=== PATIENT | male | born 1990 | race Caucasian/White ===

== ENCOUNTER 2020-03-05 12:21 | Emergency (ER) | payer OTHER, SELFPAY ==
--- NOTE | ~2020-03-05 | XR_ITS ---
EXAMINATION: XR chest 2V 03/05/2020 14:21 INDICATION: Left-sided abdomen pain PROCEDURE: 2 view chest COMPARISON: 06/05/2008 FINDINGS: The lungs are clear. The cardiomediastinal silhouette is within normal limits. There are no pleural effusions. There is no pneumothorax suspected. IMPRESSION: 1: NO ACUTE CARDIOPULMONARY DISEASE. Reviewed, dictated and finalized at location A.
--- NOTE | ~2020-03-05 | CT_ITS ---
EXAMINATION: CT abdomen pelvis w con DATE: 03/05/2020 14:19 INDICATION: Left-sided abdomen pain. TECHNIQUE: Computed tomography (CT) of the abdomen and pelvis was performed with 100 cc Omnipaque 350 intravenous contrast. The dose-length product was 266.40 mGy-cm. Automated exposure control and iter ative reconstruction technique were employed. COMPARISON: No prior studies for comparison. FINDINGS: Lung bases are unremarkable. Heart size normal. No significant vascular abnormality. No lym phadenopathy. Normal appendix. Nonobstructive bowel gas pattern. There is focal thickening of the pro ximal descending colon near the splenic flexure with adjacent fluid extending into the paracolic gutt er, most likely acute diverticulitis versus epiploic appendagitis. No free air or abscess. The liver, spleen, pancreas, adrenal glands and kidneys are unremarkable. No significant vascular abn ormality. No lymphadenopathy. No acute osseous abnormality. Gallbladder is present. IMPRESSION: 1. Focal thickening of the proximal descending colon near the splenic flexure with adjacent fluid ext ending into the paracolic gutter. Findings most consistent with acute diverticulitis versus epiploic appendagitis. Reviewed, dictated and finalized at location A. IMPRESSION: 1. Focal thickening of the proximal descending colon near the splenic flexure w ith adjacent fluid extending into the paracolic gutter. Findings most consisten t with acute diverticulitis versus epiploic appendagitis.
[2020-03-05 12:42] VITALS: BP 138/76; PULSE 93; RESP 18; TEMP 37.2; O2SAT 99
--- NOTE | 2020-03-05 12:43 | ED.ABDPAIN ---
HPI - Abdominal Pain General Chief Complaint: Abdominal Pain Stated Complaint: Left side abdomen pain Time Seen by Provider: 03/05/20 12:43 Source: patient Mode of arrival: ambulatory Limitations: no limitations History of Present Illness HPI narrative: 29-year-old man comes in today complaining of 3 days of left-sided abdominal pain that is getting worse. Patient states he has had some nausea but no vomiting. He denies fever, diarrhea, dysuria, hematuria and radiating pain. States he has never had pain like this before. States he was treated for kidney stones when he was in the service. He has had no prior abdominal surgery. MD elicited complaint: abdominal pain Onset (ago): day(s) (3) Pain Consistency: constant Location: LUQ, LLQ and L flank Severity: moderate Quality: sharp Radiation: none Migration to: no migration Exacerbating factors: movement Relieving factors: nothing Associated symptoms: nausea Related Data Home Medications Medication Instructions Recorded Confirmed Unable to Obtain Home Medications 03/05/20 03/05/20 Allergies Allergy/AdvReac Type Severity Reaction Status Date / Time No Known Allergies Allergy Mild Verified 05/14/10 03:13 Review of Systems Constitutional: Constitutional: Denies chills and Denies fever(s) Eyes: Eyes: Denies change in vision and Denies photophobia ENT: Denies dysphagia, Denies nasal congestion and Denies sore throat Cardiovascular: Cardiovascular: Denies chest pain and Denies radiating jaw, neck or arm pain Respiratory: Respiratory: Denies cough, Denies dyspnea and Denies wheezing Gastrointestinal: Gastrointestinal: Reports as per HPI, Reports abdominal pain, Denies constipation, Denies diarrhea, Reports nausea and Denies vomiting Genitourinary: Genitourinary: Denies hematuria, Denies dysuria and Reports urinary frequency Musculoskeletal: Musculoskeletal: Reports arthralgias and Reports joint swelling Integumentary/Breasts: Skin/Breast: Denies pruritus, Denies erythema and Denies rash Neurologic: Denies vertigo, Denies dizziness and Denies syncope Hematologic/Lymphatic: Hematologic/Lymphatic: Denies easy bleeding and Denies easy bruising Allergic/Immunologic: Allergic/Immunologic: Denies throat swelling and Denies tongue swelling PMFSH Past Medical History Medical History (Updated 03/05/20 @ 15:07 by Elio Fried MD) GERD (gastroesophageal reflux disease) Peptic ulcer disease Urolithiasis Social History Social History Smoking status: Never smoker Substance use: never Living arrangements: with family Exam Const: General: healthy appearing and alert Orientation/consciousness: patient oriented x3 Limitations: no limitations Other: [id number] acute distress. HENMT: Head: normal to inspection Ears: external ears normal, TM's normal bilaterally and EAC's normal Face and sinus: normal facial exam Mouth: Yes moist mucous membranes Throat: posterior oropharynx normal Eyes: Conjunctivae: conjunctivae normal Pupils: Equal, round and reactive pupils present EOM: EOMs intact bilaterally Resp: Effort & Inspection: normal respiratory effort and not labored Auscultation: clear to auscultation bilaterally, no rales, no rhonchi and no wheezes Cardio: Rate: regular rate Rhythm: regular rhythm Heart sounds: no murmurs GI: Inspection: non-distended GI Palp: Yes Soft to palpation and Yes Tenderness to palpation present (GI) ( Left flank and left lower quadrant) Other: no guarding. Skin: General skin exam: normal color, no jaundice and no pallor Rashes: no rashes Neuro: General: patient oriented x3, moves all extremities, no focal motor deficits and CN's II-XI intact bilaterally Cranial nerves: Yes Nystagmus not present Speech: normal speech Extrem: General: normal to inspection and no clubbing, cyanosis or edema Psych: Appearance: grossly normal and well kempt Mental Sta
[2020-03-05] MEDS: ONDANSETRON INJ 4 MG/2 ML VIAL IV PUSH (13:01)
[2020-03-05] MEDS: MORPHINE SULFATE 4 MG/ML INJ IV PUSH (13:01)
[2020-03-05] MEDS: SODIUM CHLORIDE 0.9% IV 1,000 ML 999 ML IV CONT (13:01)
[2020-03-05] MEDS: KETOROLAC 30 MG/ML VIAL (*BKC) IV PUSH (13:01)
[2020-03-05] MEDS: PANTOPRAZOLE SODIUM IV 40 MG VIAL IV PUSH (13:01)
[2020-03-05 13:08] LABS: Basophils Absolute Auto 0.03 K/mm3 (0.00-0.10); Basophils Percent Auto 0.4 % (0.0-1.0); Eosinophils Absolute Auto 0.22 K/mm3 (0.02-0.50); Eosinophils Percent Auto 2.7 % (1.0-6.0); Hematocrit 44.9 % (40.0-54.0); Hemoglobin 15.3 g/dL (14.0-18.0); Immature Granulocyte Absolute 0.03 K/mm3 (0.00-0.00); Immature Granulocyte Percent A 0.4 % (0.0-0.0); Lymphocytes Absolute Auto 2.12 K/mm3 (1.10-4.50); Lymphocytes Percent Auto 26.2 % (18.0-42.0); Mean Corpuscular HGB Conc 34.1 g/dL (32.0-36.0); Mean Corpuscular Hemoglobin 30.2 pg (27.0-31.0); Mean Corpuscular Volume 88.6 fL (78.0-102.0); Monocytes Absolute Auto 0.45 K/mm3 (0.10-0.90); Monocytes Percent Auto 5.6 % (2.0-11.0); Neutrophils Absolute Auto 5.2 K/mm3 (1.7-7.2); Neutrophils Percent Auto 64.7 % (50.0-70.0); Platelet Count Result 241 K/mm3 (150-420); Red Blood Count 5.07 M/mm3 (4.70-6.10); Red Cell Distribution Width 13.1 % (11.6-14.4); White Blood Count 8.1 K/mm3 (4.8-10.8)
[2020-03-05 13:09] LABS: Bilirubin Urine Negative (Negative); Blood Urine Negative (Negative); Color Urine Yellow (Yellow); Glucose Urine UA Negative (Negative); Ketones Urine Negative (Negative); Leukocyte Esterase Ur Negative LEU/UL (Negative); Nitrate Urine Negative (Negative); Protein Urine Negative (Negative); Specific Grav Ur 1.015 (1.010-1.020); pH Urine 7.5 (5.0-8.0)
[2020-03-05 13:14] LABS: Add Urine Microscopic? YES; Appearance Urine Cloudy (Clear); RBC Urine 0-2 /hpf (0-2); Squamous Epithelial Cell Urine None seen /hpf (Few); WBC Urine 0-3 /hpf (0-3)
[2020-03-05 13:15] LABS: Amorphous Sediment Urine Heavy; Bacteria Urine None seen /hpf
[2020-03-05 13:22] LABS: INR 1.1; Partial Thromboplastin Time 27.2 SEC (22.3-31.6); Prothrombin Time 10.9 Seconds (9.64-11.0)
[2020-03-05 13:23] LABS: Alanine Aminotransferase 30 U/L (16-63); Albumin Level 3.9 g/dL (3.4-5.0); Alkaline Phosphatase 69 U/L (46-116); Anion Gap 7 mmol/L (8-16); Aspartate Amino Transferase 10 U/L (15-37); Bilirubin,Total 0.3 mg/dL (0.00-1.00); Blood Urea Nitrogen 12 mg/dL (7-18); Calcium 8.7 mg/dL (8.5-10.1); Carbon Dioxide 29 mmol/L (21-32); Chloride 104 mmol/L (98-108); Estimated CRCL calculation 76 ml/min; Estimated Glomerular Filt Rate > 60; Glucose 128 mg/dL (70-99); Lipase 58 U/L (73-393); Osmolality Calculated 291 mOsm/kg (285-295); Sodium 140 mmol/L (136-145); Total Protein 7.4 g/dL (6.4-8.2)
[2020-03-05 13:26] LABS: Lactic Acid Reflex 0.9 mmol/L (0.4-2.0)
[2020-03-05 14:27] VITALS: BP 112/68; PULSE 72; RESP 16; O2SAT 98
--- NOTE | 2020-03-05 14:42 | PC.NURSE ---
[facility] head housekeeper contacted for surgical consult.
--- NOTE | 2020-03-05 15:00 | PC.NURSE ---
dr horne speaking with dr washburn at [place].
--- NOTE | 2020-03-09 13:34 | PC.NURSE ---
LATE ENTRY This note is being entered to document information to the patient's record. The following information was omitted on [03/05/20], by [KENN BLUNT]. NS 1000ML INFUSED AT 1402.
== END 2020-03-05 15:24 | disposition home or self-care (01) ==
PROVIDERS: Emergency Provider Emergency Medicine; PCP Family Medicine
DX: K63.89 Other specified diseases of intestine (principal)
CPT/HCPCS: 36415; 71046; 74177; 80053; 81001; 83605; 83690; 85025; 85610; 85730; 96361; 96374; 96375; 99282; 99284; C9113; J1885; J2270; J2405; J7030; Q9965

== ENCOUNTER 2020-07-24 10:13 | Emergency (ER) | payer OTHER, SELFPAY ==
--- NOTE | ~2020-07-24 | CT_ITS ---
EXAMINATION: CT abdomen pelvis w con DATE: 07/24/2020 13:00 INDICATION: Left lower quadrant abdominal pain. Nausea and vomiting. TECHNIQUE: Computed tomography (CT) of the abdomen and pelvis was performed with 100 mL Omnipaque 350 intravenous contrast. Automated exposure control and iterative reconstruction technique were employe d. The dose-length product was 267.59 mGy-cm. COMPARISON: CT abdomen and pelvis 03/05/2020 FINDINGS: The visualized portions of the lung bases are clear without pneumonia or pleural effusion. The heart size is normal. No pericardial effusion. The liver, gallbladder, spleen, pancreas, and adre nal glands are normal. There is mild atrophy of right kidney. There is a 10 mm cyst in left kidney. T here are no dilated loops of bowel. The appendix is normal. There are no pathologically enlarged lymp h nodes. There is no free intraperitoneal fluid. There is mild lumbar spondylosis. IMPRESSION: 1. No etiology for the patient's symptoms. Reviewed, dictated and finalized at location A. UREMENT REPRESENTATIVE
[2020-07-24 10:15] VITALS: BP 129/88; PULSE 84; RESP 16; TEMP 36.6; O2SAT 99
--- NOTE | 2020-07-24 10:25 | ED.GIBLEED ---
HPI - GI Bleed General Source: patient Mode of arrival: ambulatory Limitations: no limitations History of Present Illness HPI Narrative: A 30-year-old man with a history of peptic ulcer disease and kidney stones comes in today complaining of left side pain which has been present for last 8 days. Patient states that he has also had vomiting. After the 1st episodes of vomiting, he began to vomit up small amounts of blood and coffee-ground material. He states that he has vomited in the last 2 days but has vomited no blood or coffee-ground material. He states he has been lightheaded, had a mild headache, and nauseated. He denies any black or bloody stools and has Had no fever, sore throat, cough or cold symptoms, diarrhea, dysuria or hematuria, denies marijuana use. Patient is scheduled for EGD and colonoscopy at [facility] toward the end of this month. MD complaint: blood streaked emesis and coffee ground emesis Onset (ago): day(s) (8) Pain Consistency: intermittent Severity: moderate Relieving factors: none Exacerbating factors: eating and vomiting Context: history of GI bleed Associated symptoms: abdominal pain, nausea, vomiting and headaches Treatments Prior to Arrival: none Related Data Allergies Allergy/AdvReac Type Severity Reaction Status Date / Time No Known Allergies Allergy Mild Verified 05/14/10 03:13 Review of Systems Constitutional: Constitutional: Denies chills and Denies fever(s) Eyes: Eyes: Denies change in vision and Denies photophobia ENT: Denies nasal congestion and Denies sore throat Cardiovascular: Cardiovascular: Denies chest pain and Denies radiating jaw, neck or arm pain Respiratory: Respiratory: Denies cough and Denies dyspnea Gastrointestinal: Gastrointestinal: Reports as per HPI, Reports abdominal pain, Denies diarrhea, Reports nausea and Reports vomiting Genitourinary: Genitourinary: Denies hematuria and Denies dysuria Musculoskeletal: Musculoskeletal: Denies arthralgias and Denies joint swelling Integumentary/Breasts: Skin/Breast: Denies pruritus, Denies erythema and Denies rash Neurologic: Denies vertigo, Reports dizziness and Denies syncope Endocrine: Endocrine: Denies polydipsia and Denies polyuria Hematologic/Lymphatic: Hematologic/Lymphatic: Denies easy bleeding and Denies easy bruising Allergic/Immunologic: Allergic/Immunologic: Denies lip swelling and Denies throat swelling [facility] Past Medical History Medical History GERD (gastroesophageal reflux disease) Peptic ulcer disease Urolithiasis Social History Social History Smoking status: Current every day smoker Alcohol intake: current Alcohol use details: occasional Substance use: never Exam Const: General: alert and ill appearing acutely Orientation/consciousness: patient oriented x3 HENMT: Head: normal to inspection Ears: external ears normal, TM's normal bilaterally and EAC's normal General nose exam: Normal nares present Face and sinus: normal facial exam Mouth: Yes moist mucous membranes Throat: posterior oropharynx normal Eyes: Conjunctivae: conjunctivae normal Pupils: Equal, round and reactive pupils present EOM: EOMs intact bilaterally Resp: Effort & Inspection: normal respiratory effort and not labored Auscultation: clear to auscultation bilaterally, no rales, no rhonchi and no wheezes Cardio: Rate: regular rate Rhythm: regular rhythm Heart sounds: no murmurs GI: GI Palp: Yes Soft to palpation and Yes Tenderness to palpation present (GI) (mild, left periumbilical. NO rebound or masses. No CVA tenderness) Auscultation: normal bowel sounds Skin: General skin exam: normal color, no jaundice and no pallor Rashes: no rashes Neuro: General: patient oriented x3, moves all extremities, no focal motor deficits and CN's II-XI intact bilaterally Speech: normal speech Gait exam (Neuro): Norm
[2020-07-24 10:55] LABS: Basophils Absolute Auto 0.03 K/mm3 (0.00-0.10); Basophils Percent Auto 0.4 % (0.0-1.0); Eosinophils Absolute Auto 0.34 K/mm3 (0.02-0.50); Eosinophils Percent Auto 4.7 % (1.0-6.0); Hematocrit 44.2 % (40.0-54.0); Hemoglobin 14.9 g/dL (14.0-18.0); Immature Granulocyte Absolute 0.03 K/mm3 (0.00-0.00); Immature Granulocyte Percent A 0.4 % (0.0-0.0); Lymphocytes Absolute Auto 3.41 K/mm3 (1.10-4.50); Mean Corpuscular HGB Conc 33.7 g/dL (32.0-36.0); Mean Corpuscular Hemoglobin 29.4 pg (27.0-31.0); Mean Corpuscular Volume 87.4 fL (78.0-102.0); Mean Platelet Volume 10.9 fl (8.7-11.0); Monocytes Absolute Auto 0.45 K/mm3 (0.10-0.90); Monocytes Percent Auto 6.2 % (2.0-11.0); Neutrophils Percent Auto 41.3 % (50.0-70.0); Platelet Count Result 216 K/mm3 (150-420); Red Blood Count 5.06 M/mm3 (4.70-6.10); Red Cell Distribution Width 12.9 % (11.6-14.4); White Blood Count 7.3 K/mm3 (4.8-10.8)
[2020-07-24] MEDS: ONDANSETRON INJ 4 MG/2 ML VIAL IV PUSH (10:55)
[2020-07-24] MEDS: SODIUM CHLORIDE 0.9% IV 1,000 ML 999 ML IV CONT (10:55)
[2020-07-24] MEDS: PANTOPRAZOLE SODIUM IV 40 MG VIAL IV PUSH (10:55)
[2020-07-24 11:06] VITALS: BP 117/73; PULSE 78
[2020-07-24] MEDS: MORPHINE SULFATE (*CRX) 4 MG/ML INJ IV PUSH (11:06)
--- NOTE | 2020-07-24 11:07 | PC.NURSE ---
PT HAVING LOCALIZED REDNESS TO RIGHT HAND AT IV SITE THAT MOVES SLIGHTLY UP RIGHT FOREARM. ERP NOTIFIED. RN MONITORING SITE CLOSELY.
[2020-07-24 11:08] VITALS: BP 110/81; PULSE 86
[2020-07-24 11:10] LABS: Partial Thromboplastin Time 24.6 SEC (23.90-30.70); Prothrombin Time 10.3 Seconds (9.50-12.10)
[2020-07-24 11:11] LABS: Acetaminophen < 2 ug/mL (10-30)
[2020-07-24 11:12] LABS: Alanine Aminotransferase 32 U/L (16-63); Albumin Level 3.9 g/dL (3.4-5.0); Alkaline Phosphatase 54 U/L (46-116); Anion Gap 10 mmol/L (8-16); Aspartate Amino Transferase 11 U/L (15-37); Bilirubin,Total 0.2 mg/dL (0.00-1.00); Blood Urea Nitrogen 13 mg/dL (7-18); Carbon Dioxide 26 mmol/L (21-32); Chloride 104 mmol/L (98-108); Estimated CRCL calculation 101 ml/min; Estimated Glomerular Filt Rate > 60; Glucose 96 mg/dL (70-99); Lipase 83 U/L (73-393); Osmolality Calculated 290 mOsm/kg (285-295); Potassium 4.2 mmol/L (3.5-5.1); Sodium 140 mmol/L (136-145); Total Protein 7.2 g/dL (6.4-8.2)
[2020-07-24 11:13] LABS: Lactic Acid Reflex 0.9 mmol/L (0.4-2.0)
[2020-07-24] MEDS: SODIUM CHLORIDE 0.9% IV 1,000 ML 999 ML (12:14)
[2020-07-24 12:17] LABS: Add Urine Microscopic? NO; Appearance Urine Clear (Clear); Bilirubin Urine Negative (Negative); Blood Urine Negative (Negative); Color Urine Yellow (Yellow); Glucose Urine UA Negative (Negative); Ketones Urine Negative (Negative); Leukocyte Esterase Ur Negative LEU/UL (Negative); Nitrate Urine Negative (Negative); Protein Urine Negative (Negative); Specific Grav Ur >= 1.030 (1.010-1.020); Urobilinogen Urine 0.2 mg/dL (0.2-1.0)
[2020-07-24 12:27] LABS: Amphetamine Screen Urine Positive (Negative); Barbiturate Screen Urine Negative (Negative); Benzodiazepines Screen Urine Negative (Negative); Cannabinoid Screen Urine Negative (Negative); Cocaine Screen Urine Negative (Negative); Methadone Screen Urine Negative (Negative); Opiate Screen Urine Positive (Negative); Phencyclidine Screen Urine Negative (Negative)
--- NOTE | 2020-07-24 12:48 | PC.NURSE ---
REPORT PROVIDED TO MERLENE BARTON
--- NOTE | 2020-07-24 13:09 | PC.NURSE ---
pt resting per cot on cell phone.
[2020-07-24 13:15] VITALS: BP 116/75; PULSE 77; RESP 20; TEMP 37.1; O2SAT 100
== END 2020-07-24 13:18 | disposition home or self-care (01) ==
PROVIDERS: Emergency Provider Emergency Medicine
DX: R10.32 Left lower quadrant pain (principal); K92.0 Hematemesis
CPT/HCPCS: 36415; 74177; 80053; 80307; 81003; 83605; 83690; 85025; 85610; 85730; 96361; 96374; 96375; 99283; 99284; C9113; J2270; J2405; J7030; Q9967

== ENCOUNTER 2020-08-20 00:45 | Emergency (ER) | payer OTHER, SELFPAY ==
--- NOTE | 2020-08-20 00:54 | ED.URI ---
HPI - URI/Sore Throat General Chief Complaint: Upper Respiratory Infection Stated Complaint: Sore Throat Time Seen by Provider: 08/20/20 01:04 Source: patient Mode of arrival: ambulatory Limitations: no limitations History of Present Illness HPI Narrative: 30-year-old man comes in today complaining of sore throat that has been present for the last 4 days. Patient states it started after he had endoscopy last week. He has noticed that there are white patches in the back of his throat and that is red and somewhat swollen. He denies difficulty swallowing, difficulty breathing, fever, vomiting, diarrhea, cough or cold symptoms, and rash. He denies any sick contacts. MD elicited complaint: sore throat Onset (ago): day(s) (4) Consistency: constant Severity: moderate Able to tolerate fluids by mouth: Yes Exacerbating factors: swallowing Relieving factors: nothing Associated symptoms: sore throat Related Data Home Medications Medication Instructions Recorded Confirmed docusate sodium 100 mg PO DAILY 08/20/20 08/20/20 linaclotide [Linzess] 72 mcg PO DAILY 08/20/20 08/20/20 omeprazole 40 mg PO BID 08/20/20 08/20/20 Allergies Allergy/AdvReac Type Severity Reaction Status Date / Time No Known Allergies Allergy Mild Verified 05/14/10 03:13 Review of Systems Constitutional: Constitutional: Denies chills and Denies fever(s) Eyes: Eyes: Denies change in vision and Denies photophobia ENT: Reports as per HPI, Denies dysphagia, Denies nasal congestion and Reports sore throat Cardiovascular: Cardiovascular: Denies chest pain and Denies radiating jaw, neck or arm pain Respiratory: Respiratory: Denies cough and Denies dyspnea Gastrointestinal: Gastrointestinal: Denies nausea and Denies vomiting Musculoskeletal: Musculoskeletal: Denies arthralgias and Denies joint swelling Integumentary/Breasts: Skin/Breast: Denies pruritus, Denies erythema and Denies rash Neurologic: Denies vertigo, Denies dizziness and Denies syncope Hematologic/Lymphatic: Hematologic/Lymphatic: Denies easy bleeding and Denies easy bruising Allergic/Immunologic: Allergic/Immunologic: Denies lip swelling, Reports throat swelling and Denies tongue swelling PMFSH Past Medical History Medical History GERD (gastroesophageal reflux disease) Peptic ulcer disease Urolithiasis Social History Social History Smoking status: Current every day smoker Alcohol intake: current Substance use: never Exam Const: General: healthy appearing, no acute distress and alert Orientation/consciousness: patient oriented x3 Limitations: no limitations HENMT: Head: normal to inspection Ears: external ears normal, TM's normal bilaterally and EAC's normal General nose exam: Normal nares present Face and sinus: normal facial exam Mouth: Yes moist mucous membranes Other: Pharyngeal mucosa is erythematous with a scant white exudate. Eyes: Conjunctivae: conjunctivae normal Pupils: Equal, round and reactive pupils present EOM: EOMs intact bilaterally Neck: Neck: normal visual inspection and no lymphadenopathy Resp: Effort & Inspection: normal respiratory effort and not labored Auscultation: clear to auscultation bilaterally, no rales, no rhonchi and no wheezes Cardio: Rate: regular rate Rhythm: regular rhythm Heart sounds: no murmurs Skin: General skin exam: normal color, no jaundice and no pallor Rashes: no rashes Neuro: General: patient oriented x3, moves all extremities, no focal motor deficits and CN's II-XI intact bilaterally Speech: normal speech Gait exam (Neuro): Normal gait present Extrem: General: normal to inspection and no clubbing, cyanosis or edema Psych: Appearance: grossly normal and well kempt Mental Status: mental status grossly normal Affect: normal affect Attitude: cooperative Thought content: Yes Normal thought content pres
[2020-08-20 01:10] VITALS: BP 130/89; PULSE 89; RESP 20; TEMP 37.1; O2SAT 99
[2020-08-20 01:25] VITALS: BP 125/86; PULSE 80; RESP 18; O2SAT 98
== END 2020-08-20 01:28 | disposition home or self-care (01) ==
PROVIDERS: Emergency Provider Emergency Medicine; PCP Family Medicine
DX: J02.9 Acute pharyngitis, unspecified (principal)
CPT/HCPCS: 87081; 87880; 99283

== ENCOUNTER 2021-07-12 10:41 | Emergency (ER) | payer OTHER, SELFPAY ==
[2021-07-12 10:45] VITALS: BP 149/94; PULSE 89; RESP 20; TEMP 37; O2SAT 100
--- NOTE | 2021-07-12 11:24 | ED.PSYCH ---
HPI - Psych General Chief Complaint: Psychiatric Symptoms Stated Complaint: sucidial thoughts, PTSD-off meds Source: patient Mode of arrival: ambulatory Limitations: no limitations History of Present Illness HPI Narrative: this is a 31-year-old gentleman that presents with some hypnagogic hallucinations prior to sleep currently not suicidal has a history of depression and posttraumatic stress disorder has been off his medication for the last couple weeks, and states that he is a methamphetamine user. Currently no suicidal ideations or thoughts no plan, appears comfortable with some no acute distress no fever chills no nausea vomiting no chest pain no shortness of breath no abdominal pain. complaint: other ( hypnagogic hallucinations) Onset (ago): day(s) Duration: intermittent History of same: Yes Relieving factors: medication Exacerbating factors: none Context: recent drug abuse Associated psychiatric symptoms: depression Treatments prior to arrival: none Related Data Allergies Allergy/AdvReac Type Severity Reaction Status Date / Time No Known Allergies Allergy Mild Verified 05/14/10 03:13 Review of Systems Review of Systems: All systems reviewed & are unremarkable except as noted in HPI and below PMFSH Past Medical History Medical History GERD (gastroesophageal reflux disease) Peptic ulcer disease Urolithiasis Social History Social History Smoking status: Current every day smoker Alcohol intake: current Alcohol use details: occasional Substance use: never Exam Const: General: no acute distress and alert Orientation/consciousness: patient oriented x3 HENMT: Head: normal to inspection Eyes: Conjunctivae: conjunctivae normal Pupils: Equal, round and reactive pupils present Neck: Neck: normal visual inspection, no lymphadenopathy and no meningeal signs Chest: Chest palpation & inspection: normal inspection of the chest Resp: Effort & Inspection: normal respiratory effort Cardio: Rate: regular rate Rhythm: regular rhythm GI: GI Palp: Yes Soft to palpation Percussion: Yes normal to percussion : Testes: Testes normal Urinary Catheter: Urinary Catheter: patent and draining Back/Spine/Pelvis: Back: no CVA tenderness Skin: General skin exam: normal color Rashes: no rashes Neuro: General: patient oriented x3, moves all extremities, no meningeal signs and no focal motor deficits Extrem: General: normal to inspection and no pedal edema Psych: Appearance: disheveled Mental Status: mental status grossly normal Affect: normal affect Attitude: cooperative Course Course Emergency Course: Patient currently not exhibiting any symptoms states that he periodically has hypnagogic hallucinations, currently not suicidal does have history of depression advised him to follow-up with his primary care physician and will send anti anxiety medicine to his pharmacy. Critical Care Time Critical Care Time Critical Care Time: No Discharge Plan Discharge Clinical Impression: Hypnagogic hallucinations, Anxiety Patient Disposition: Home, Self-Care Condition: Stable Instructions: Antibiotic Form, Anxiety (ED) Additional Instructions: take medicine as prescribed and follow-up with primary care physician as soon as possible for further evaluation and treatment. Prescriptions: New alprazolam [Xanax] 0.5 mg tablet 0.5 mg PO BID PRN (Reason: anxiety) Qty: 20 RF: 0 Follow-up/Referrals: Clemente Desai MD [Primary Care Provider] - Time of Disposition: 11:38
[2021-07-12 12:26] VITALS: BP 136/89; PULSE 77; RESP 16; TEMP 36.7; O2SAT 100
== END 2021-07-12 12:20 | disposition home or self-care (01) ==
PROVIDERS: Emergency Provider Emergency Medicine; PCP Internal Medicine
DX: R44.2 Other hallucinations (principal); F41.9 Anxiety disorder, unspecified
CPT/HCPCS: 99283

== ENCOUNTER 2023-12-13 20:38 | Emergency (ER) | payer OTHER, SELFPAY ==
[2023-12-13] VITALS (9 sets, daily range): BP systolic 136; BP diastolic 82; PULSE 96–118; RESP 13–24; TEMP 37.2; O2SAT 94–100
[2023-12-13 21:09] LABS: Basophils Percent Auto 0.2 % (0.2-1.2); Eosinophils Percent Auto 0.2 % (0-4.4); Hematocrit 40.9 % (42.0-52.0); Hemoglobin 14.4 g/dL (14.0-18.0); Immature Granulocyte Absolute 0.02 K/mm3 (0.00-0.031); Immature Granulocyte Percent A 0.3 % (0-0.5); Lymphocytes Absolute Auto 2.38 K/mm3 (0.9-3.2); Lymphocytes Percent Auto 36.2 % (18.3-44.2); Mean Corpuscular HGB Conc 35.2 g/dl (32-36); Mean Corpuscular Hemoglobin 30.6 pg (26-34); Mean Corpuscular Volume 86.8 fl (80-100); Mean Platelet Volume 10.9 fl (7.4-10.4); Monocytes Absolute Auto 0.4 K/mm3 (0.1-0.6); Monocytes Percent Auto 6.1 % (2.6-8.5); Neutrophils Absolute Auto 3.8 K/mm3 (1.3-6.7); Platelet Count Result 215 k/mm3 (150-375); Red Blood Count 4.71 M/mm3 (4.6-6.20); Red Cell Distribution Width 13.1 % (11.5-14.5); White Blood Count 6.6 K/mm3 (4.5-10.0)
[2023-12-13 21:13] LABS: Appearance Urine Clear (Clear); Bilirubin Urine Negative (Negative); Blood Urine Negative (Negative); Color Urine Yellow (Yellow); Glucose Urine UA Negative (Negative); Ketones Urine Negative (Negative); Leukocyte Esterase Ur Negative LEU/UL (Negative); Nitrate Urine Negative (Negative); Protein Urine Negative (Negative); Urobilinogen Urine 0.2 mg/dL (<2.0); pH Urine 5.5 (5.0-9.0)
[2023-12-13 21:18] LABS: Add Urine Microscopic? NO; Specific Grav Ur 1.002 (1.001-1.035)
[2023-12-13 21:20] LABS: Ethanol 161 mg/dL (<10)
[2023-12-13 21:21] LABS: Alanine Aminotransferase 40 U/L (6-50); Albumin Level 4.5 g/dL (3.5-5.1); Alkaline Phosphatase 60 U/L (38-126); Anion Gap 12 mmol/L (4-12); Aspartate Amino Transferase 25 U/L (17-59); Bilirubin,Total 0.3 mg/dL (0.2-1.3); Blood Urea Nitrogen 14 mg/dL (9-20); Calcium 8.6 mg/dL (8.4-10.2); Carbon Dioxide 21 mmol/L (22-30); Chloride 111 mmol/L (98-107); Estimated CRCL calculation 81 ml/min; Estimated Glomerular Filt Rate > 60; Glucose 101 mg/dL (65-110); Potassium 3.9 mmol/L (3.4-5.0); Sodium 144 mmol/L (137-145)
[2023-12-13 21:30] LABS: Amphetamine Screen Urine Negative (Negative); Barbiturate Screen Urine Negative (Negative); Benzodiazepines Screen Urine Negative (Negative); Cannabinoid Screen Urine Negative (Negative); Cocaine Screen Urine Negative (Negative); Methadone Screen Urine Negative (Negative); Opiate Screen Urine Negative (Negative); Phencyclidine Screen Urine Negative (Negative)
[2023-12-13 21:47] LABS: Influenza A QL RT-PCR Negative (Negative); Influenza B QL RT-PCR Negative (Negative); RSV RNA, RT-PCR Negative (Negative); SARS-CoV-2 RNA PCR Negative (Negative)
[2023-12-13 21:57] LABS: Thyroid Stimulating Hormone Reflex 0.717 uIU/mL (0.465-4.68)
--- NOTE | 2023-12-13 22:03 | PC.NURSE ---
Patient restless on stretcher with sitter at bedside as well as family at bedside. Patient bleeding from his lac to left wrist. Patient easily able to be redirected. Patients lac re-wrapped with saline and gauze with coban. Patients wound steadily dripping blood. ERP notified and went to see patient.
--- NOTE | 2023-12-13 22:12 | ED.GENADULT ---
[facility] - General Adult General Chief complaint: Psychiatric Symptoms Stated complaint: wrist laceration/SI Time Seen by Provider: 12/13/23 21:39 Source: patient Mode of arrival: ambulatory Limitations: no limitations History of Present Illness [facility] narrative: This is a 33-year-old male who presents to the ED with chief complaint of self-inflicted lacerations to the left wrist. Patient states that he was drinking today which he does not normally do. States that he is not sure why he decided to cut his wrist. He reports intermittent suicidal ideations but no plan. Also endorses intermittent homicidal ideations towards a family member but states he would never do it. States that he has a lot going on right now but does not elaborate. states he is not taking any regular medications. Does not do any other drugs. No other medical complaint Related Data Home Medications Medication Instructions Recorded Confirmed No Home Medications 12/13/23 12/13/23 Allergies Allergy/AdvReac Type Severity Reaction Status Date / Time No Known Allergies Allergy Mild Verified 12/13/23 20:56 Review of Systems Review of Systems: All systems as dictated in [facility] Past Medical History Medical History GERD (gastroesophageal reflux disease) Peptic ulcer disease Urolithiasis Social History Social History Smoking status: Current every day smoker Alcohol intake: current Alcohol use details: occasional Substance use: never Substance use type: methamphetamine Living arrangements: with family Exam Narrative: GENERAL: Well-appearing, well-nourished, and in no acute distress. HEAD: Normocephalic, atraumatic. EYES: PERRLA and EOMI. ENT: Nares clear, no rhinorrhea or epistaxis. Mucous membranes moist. Oropharynx without tonsillar hypertrophy exudate or other lesions. NECK: Supple. No adenopathy or masses. CHEST: No respiratory distress. Clear to auscultation. No wheezes rales or rhonchi HEART: Regular rate and rhythm. No murmur heard. Normal peripheral pulses. ABDOMEN: Soft, nontender, nondistended, normal active bowel sounds. MSK: Normal range of motion. No edema. Full range of motion of the left hand. Neurovascularly intact distally of the left hand. SKIN: 7 cm laceration across the volar left wrist. There is muscle fascia that has been disrupted. No active bleeding. NEURO: Alert and oriented x4. No focal deficits. PSYCH: (+) SI but no plan. (+) HI toward relative but no plan Thought content is linear. Coherent. Cooperative with exam. Course Vital Signs Vital signs: Vital Signs Temperature 37.2 C 12/13/23 20:35 Pulse Rate 118 H 12/13/23 20:35 Respiratory Rate 16 12/13/23 20:35 Blood Pressure 136/82 12/13/23 20:35 Pulse Oximetry 94 12/13/23 20:35 Oxygen Delivery Room Air 12/13/23 20:35 Temperature 37.2 C 12/14/23 00:40 Pulse Rate 112 H 12/14/23 04:45 Respiratory Rate 16 12/14/23 04:45 Blood Pressure 134/94 H 12/14/23 04:45 Pulse Oximetry 96 12/14/23 04:15 Oxygen Delivery Room Air 12/13/23 20:35 Procedures Laceration Laceration 1: Date: 12/13/23 Time: 22:52 Site: upper extremity Side (If applicable): left Size (cm): 7 Description: linear Depth: simple, single layer Local Anesthetic: lidocaine 1% Amount of anesthesia used (mL): 5 Pre-repair: wound explored and irrigated extensively ====== Skin Level ====== Skin layer closed with: nylon Size (cm): 4-0 Number of sutures: 6 Technique: simple, interrupted ====== Subcutaneous Layer ====== Subcutaneous layer closed with: vicryl Size: 4-0 Number of sutures: 3 Technique: simple, interrupted ====== Muscle Layer ====== Muscle layer closed with: vicryl
[2023-12-14] VITALS (21 sets, daily range): BP systolic 134; BP diastolic 94; PULSE 93–119; RESP 14–32; TEMP 37.2; O2SAT 93–100
[2023-12-14] MEDS: IBUPROFEN 400 MG TABLET 800 MG PO (00:12)
--- NOTE | 2023-12-14 01:55 | PC.NURSE ---
Patients family brought patient food, taco zambrano. ERP aware and okay with patient eating food. Sitter remains at bedside.
[2023-12-14 02:34] LABS: Ethanol 32 mg/dL (<10)
== END 2023-12-14 05:13 | disposition home or self-care (01) ==
PROVIDERS: Emergency Medicine; Emergency Provider Physician Assistant; PCP Internal Medicine
DX: S61.512A Laceration without foreign body of left wrist, initial encounter (principal); R45.88 Nonsuicidal self-harm; K21.9 Gastro-esophageal reflux disease without esophagitis; F17.290 Nicotine dependence, other tobacco product, uncomplicated; Z87.11 Personal history of peptic ulcer disease; Z87.442 Personal history of urinary calculi; W26.0XXA Contact with knife, initial encounter
CPT/HCPCS: 13132; 36415; 80053; 80307; 81003; 84443; 85025; 87637; 99284; A9270